=== PATIENT | female | born 1990 | race Two or more races ===

== ENCOUNTER 2016-08-11 07:14 | Inpatient (IN) | payer MEDICAID ==
[2016-08-11] MEDS: Misoprostol 50 MCG (1/2 of 100 MCG) Tab VAG PRN ×2 (07:50→15:15)
[2016-08-11] MEDS ORDERED: Calcium Carbonate 500 MG Tab.Chew PO PRN (08:00)
[2016-08-11] MEDS ORDERED: Acetaminophen 325 MG Tab PO PRN (08:00)
[2016-08-11] MEDS ORDERED: Sodium Chloride 0.9% 10 ML Syringe FLUSH PRN (08:00)
--- NOTE | 2016-08-11 08:17 | PCM.LDHP ---
L&D History of Present Illness - General Date of Service: 08/11/16 Admit Problem/Dx: Patient Status Order with Admit Dx/Problem 08/11/16 08:00 Patient Status [ADT] Routine Admission Diagnosis/Problem Admission Diagnosis/Problem Source of Information: Patient History Limitations: Reports: Language barrier - History of Present Illness Improves with: Reports: None Worsens with: Reports: None Associated Symptoms: Reports: N H&P Review of Systems - Review of Systems: Review Of Systems: See Below General: Reports: no symptoms HEENT: Reports: no symptoms Pulmonary: Reports: No Symptoms Cardiovascular: Reports: no symptoms Gastrointestinal: Reports: No symptoms Genitourinary: Reports: no symptoms Musculoskeletal: Reports: no symptoms Skin: Reports: no symptoms Psychiatric: Reports: no symptoms Neurological: Reports: No Symptoms Hematologic/Lymphatic: Reports: no symptoms Immunologic: Reports: no symptoms L&D Exam - Exam Exam: See Below - Vital Signs Vital Signs: Last Vital Signs Temp 36.5 C 08/11/16 07:39 Pulse 100 08/11/16 07:39 Resp 16 08/11/16 07:39 BP 98/72 08/11/16 07:39 Pulse Ox 96 08/11/16 07:39 - OB Specific movement: active heart tones: present Presentation: Vertex Estimated Weight: 7lbs - Don Score Don Score Cervix Position: Posterior Don Score Consistency: Soft Don Score Effacement: 31-50% Don Score Dilation: Closed Don Score 's Station: -3 Don Score Total: 3 - Exam General: alert, oriented HEENT: PERRLA, Conjunctiva clear, EACs clear, EOMI, Hearing intact, Mucosa moist & pink, Nares patent, Normal nasal septum, Posterior pharynx clear, Pupils equal, Pupils reactive, TMs clear Neck: supple, trachea midline Lungs: Clear to auscultation, Normal respiratory effort Cardiovascular: regular rate, regular rhythm Abdomen: normal bowel sounds, soft Genitourinary: Normal external exam Back Exam: normal inspection, full range of motion Extremities: normal inspection Skin: warm, dry, intact Neurological: cranial nerves intact, reflexes equal bilateral DTR: 2+: patella (L), patella (R) Psychiatric: alert, normal affect, normal mood - Patient Data Lab Results last 24 hrs: Laboratory Results - last 24 hr 08/11/16 08/11/16 08/11/16 Range/Units 07:33 07:34 07:34 WBC 7.5 (4.5-11.0) K/uL RBC 4.25 (3.30-5.50) M/uL Hgb 12.0 (12.0-15.0) g/dL Hct 36.7 (36.0-48.0) % MCV 86 (80-98) fL MCH 28 (27-31) pg MCHC 33 (32-36) % Plt Count 219 (150-400) K/uL Urine Color Yellow Urine Appearance Cloudy Urine pH 7.0 (4.5-8.0) Ur Specific [place] 1.010 (1.008-1.030) Urine Protein Negative (NEGATIVE) mg/dL Urine Glucose (UA) Normal (NEGATIVE) mg/dL Urine Ketones Negative (NEGATIVE) mg/dL Urine Occult Blood Negative (NEGATIVE) Urine Nitrite Negative (NEGATIVE) Urine Bilirubin Negative (NEGATIVE) Urine Urobilinogen Normal (NORMAL) mg/dL Ur Leukocyte Esterase Large (NEGATIVE) Urine RBC 0-5 (0-5) Urine WBC 5-10 H (0-5) Ur Epithelial Cells Moderate Amorphous Sediment Few Urine Bacteria Few Urine Mucus Few Urine Opiates Screen Negative (NEGATIVE) Ur Oxycodone Screen Negative (NEGATIVE) Urine Methadone Screen Negative (NEGATIVE) Ur Propoxyphene Screen Negative (NEGATIVE) Ur Barbiturates Screen Negative (NEGATIVE) Ur Tricyclics Screen Negative (NEGATIVE) Ur Phencyclidine Scrn Negative (NEGATIVE) Ur Amphetamine Screen Negative (NEGATIVE) U Methamphetamines Scrn Negative (NEGATIVE) Urine MDMA Screen Negative (NEGATIVE) U Benzodiazepines Scrn Negative (NEGATIVE) U Cocaine Metab Screen Negative (NEGATIVE) U Marijuana (THC) Screen Negative (NEGATIVE) Result Diagrams: 08/11/16 07:33 - Problem List (1) Elective induction of labor planned SNOMED Code(s): 216621476 ICD Code: [id number] - Status: Acute Current Visit: Yes (2) SNOMED Code(s): 31912504 ICD Code: Z33.1 - STATE, INCIDENTAL Status: Acute Current Visit : Yes Qualifiers: Weeks of gestation: 40 weeks Qualified Code(s): Z3A.40 - 40 weeks gestation of (3) Post-dates SNOMED Code(s): 06450358 ICD Code: O48.0 - POST-TERM Status: Acute Current Visit: Yes Qualifiers: Post-term type: 40-42 weeks gestation Qualified Code(s): O48.0 - Post-term Problem List Initiated/Reviewed/Updated: Yes Orders Last 24hrs: Active Orders 24 hr Category Date Time Status Patient Status [ADT] Routine ADT 08/11/16 08:00 Ordered Ambulate [RC] PER UNIT ROUTINE Care 08/11/16 08:00 Ordered Communication Order [RC] ASDIRECTED Care 08/11/16 08:00 Ordered Heart Tones [RC] PER UNIT ROUTINE Care 08/11/16 08:00 Ordered May Shower [RC] ASDIRECTED Care 08/11/16 08:00 Ordered Notify Provider Vital Signs [RC] PRN Care 08/11/16 08:00 Ordered Notify Provider [RC] PRN Care 08/11/16 08:00 Ordered Up ad Laury [RC] ASDIRECTED Care 08/11/16 08:00 Ordered VTE/DVT Education [RC] Click to Edit Care 08/11/16 08:02 Ordered Vital Signs [RC] PER UNIT ROUTINE Care 08/11/16 08:00 Ordered Acetaminophen [Tylenol] Med 08/11/16 08:00 Ordered 650 mg PO Q4H PRN Calcium Carbonate [Tums] Med 08/11/16 08:00 Ordered 1,000 mg PO Q2HR PRN Misoprostol [Cytotec] Med 08/11/16 07:41 Active 50 mcg VAG Q4H PRN Ondansetron [Zofran] Med 08/11/16 08:00 Ordered 4 mg IV Q4H PRN Sodium Chloride 0.9% [Saline Flush] Med 08/11/16 08:00 Ordered 10 ml FLUSH ASDIRECTED PRN fentaNYL [Sublimaze] Med 08/11/16 08:00 Ordered 100 mcg IVPUSH Q1H PRN DVT/VTE Prophylaxis Reflex [OM.PC] Routine Oth 08/11/16 08:00 Ordered Saline Lock Insert [OM.PC] Routine Oth 08/11/16 08:00 Ordered Resuscitation Status Routine Resus Stat 08/11/16 08:00 Ordered Medication Orders Misoprostol (Cytotec) 50 mcg VAG Q4H PRN PRN Reason: Other Last Admin: 08/11/16 07:50 Dose: 50 mcg Assessment/Plan Comment:: 08/11/2016 26 yo @ 40 & 2/7 wks gestation here for and elective induction of labor for postdates SVE-FT/50/-3 [place]-3 Cytotec placed 50mcg vaginally @ 8498 Labs-Apos, GBS negative, Rubella Immune, RPR nonreactive, Hep B negative, HIV negative, Hgb 12.0 Plan- Monitor for active labor Up and about Patient may bath Patient may eat regular diet till epidural Intermittent monitoring Pain management per patient request Anticipate a vaginal delivery
[2016-08-11] MEDS ORDERED: Lactated Ringers 500 ML IV ONE (12:30)
--- NOTE | 2016-08-11 15:33 | PCM.PNLD ---
Labor Progress Note - VS & Meds Vital Signs: Last Vital Signs Temp 36.7 C 08/11/16 12:15 Pulse 56 L 08/11/16 12:15 Resp 16 08/11/16 12:15 BP 119/83 08/11/16 12:15 Pulse Ox 99 08/11/16 10:25 Active Medications: Current Medications Acetaminophen (Tylenol) 650 mg PO Q4H PRN PRN Reason: Pain (Mild 1-3) and fever Calcium Carbonate/Glycine (Tums) 1,000 mg PO Q2H PRN PRN Reason: Indigestion Fentanyl (Sublimaze) 100 mcg IVPUSH Q1H PRN PRN Reason: Pain (moderate 4-6) Misoprostol (Cytotec) 50 mcg VAG Q4H PRN PRN Reason: Other Last Admin: 08/11/16 15:15 Dose: 50 mcg Ondansetron HCl (Zofran) 4 mg IV Q4H PRN PRN Reason: Nausea/Vomiting Sodium Chloride (Saline Flush) 10 ml FLUSH ASDIRECTED PRN PRN Reason: Keep Vein Open Discontinued Medications Lactated Ringer's (Ringers, Lactated) 500 mls @ 999 mls/hr IV .BOLUS ONE Stop: 08/11/16 13:00 Last Admin: 08/11/16 12:34 Dose: 999 mls/hr - Uterine Contractions Uterine Monitoring Mode: External [place] Contraction Frequency (min): 1.5-6 Contraction Duration (sec): 60-80 Contraction Intensity: Mild to Moderate Uterine Resting Tone: Soft - Vaginal Exam Dilation (cm): FT Effacement (Percent): 80-90 Station: -2 Cervical Position: Posterior Sterile Vaginal Exam Performed By: Anne Chan Vaginal Exam Comment: IV fluid bolus. Reasses prior to Cytotec placement - Labor Progress (Free Text) Labor Progress: 08/11/2016 CNM came at noon and patient was willie to frequently to place another cytotec, but had had little to no cervical change 1515-SVE FT/80-90/-2 posterior Cytotec 50mcg placed at this time Patient tolerating pain with position change Plan- Continue to monitor for active labor Continue intermittent monitoring Patient can eat regular diet Anticipate a vaginal delivery If no change at next check, will sleep patient and restart early in am
[2016-08-11] MEDS: Ondansetron 4 MG/2 ML SDV IV PRN (16:48)
[2016-08-11] MEDS: fentaNYL 100 MCG/2 ML SDV IVPUSH PRN ×2 (16:58→18:13)
[2016-08-11] MEDS ORDERED: Lactated Ringers 500 ML IV SCH (17:15)
[2016-08-11] MEDS: Lactated Ringers 1,000 ML IV ONE ×2 (18:20→21:19)
--- NOTE | 2016-08-11 18:21 | PCM.PNLD ---
Labor Progress Note - VS & Meds Vital Signs: Last Vital Signs Temp 37.2 C 08/11/16 17:34 Pulse 65 08/11/16 17:25 Resp 16 08/11/16 17:25 BP 117/74 08/11/16 17:25 Pulse Ox 99 08/11/16 15:30 Active Medications: Current Medications Acetaminophen (Tylenol) 650 mg PO Q4H PRN PRN Reason: Pain (Mild 1-3) and fever Last Admin: 08/11/16 17:04 Dose: 650 mg Calcium Carbonate/Glycine (Tums) 1,000 mg PO Q2H PRN PRN Reason: Indigestion Fentanyl (Sublimaze) 100 mcg IVPUSH Q1H PRN PRN Reason: Pain (moderate 4-6) Last Admin: 08/11/16 16:58 Dose: 100 mcg Misoprostol (Cytotec) 50 mcg VAG Q4H PRN PRN Reason: Other Last Admin: 08/11/16 15:15 Dose: 50 mcg Ondansetron HCl (Zofran) 4 mg IV Q4H PRN PRN Reason: Nausea/Vomiting Last Admin: 08/11/16 16:48 Dose: 4 mg Sodium Chloride (Saline Flush) 10 ml FLUSH ASDIRECTED PRN PRN Reason: Keep Vein Open Discontinued Medications Lactated Ringer's (Ringers, Lactated) 500 mls @ 999 mls/hr IV .BOLUS ONE Stop: 08/11/16 13:00 Last Admin: 08/11/16 12:34 Dose: 999 mls/hr Lactated Ringer's (Ringers, Lactated) 500 mls @ 999 mls/hr IV .BOLUS BEENA Stop: 08/11/16 17:30 - Uterine Contractions Uterine Monitoring Mode: External [place] Contraction Frequency (min): 1-2.5 Contraction Duration (sec): 60-90 Contraction Intensity: Moderate to Strong Uterine Resting Tone: Soft - Vaginal Exam Dilation (cm): 1 Effacement (Percent): 80 Station: -2 Cervical Position: Posterior Sterile Vaginal Exam Performed By: Anne Chan Vaginal Exam Comment: IV fluid bolus. Reasses prior to Cytotec placement - Labor Progress (Free Text) Labor Progress: 08/11/2016 Patient not getting any relief from IV pain medication SVE-1-2/80/-2 but more midposition Contraction tachystole-FHT stable category one Patient crying in pain-rating it a ten on pain scale Plan- IV bolus patient-to slow contractions Get patient an epidural-for pain management Once comfortable place cormier catheter Anticipate vaginal delivery
[2016-08-11] MEDS ORDERED: ePHEDrine 50 MG/ML SDV ONE (19:22)
[2016-08-11] MEDS ORDERED: Ropivacaine 100 ML ONE (19:33)
--- NOTE | 2016-08-11 19:40 | PCM.PNLD ---
Labor Progress Note - VS & Meds Vital Signs: Last Vital Signs Temp 37.2 C 08/11/16 17:34 Pulse 65 08/11/16 17:25 Resp 16 08/11/16 17:25 BP 117/74 08/11/16 17:25 Pulse Ox 99 08/11/16 15:30 Active Medications: Current Medications Acetaminophen (Tylenol) 650 mg PO Q4H PRN PRN Reason: Pain (Mild 1-3) and fever Last Admin: 08/11/16 17:04 Dose: 650 mg Calcium Carbonate/Glycine (Tums) 1,000 mg PO Q2H PRN PRN Reason: Indigestion Fentanyl (Sublimaze) 100 mcg IVPUSH Q1H PRN PRN Reason: Pain (moderate 4-6) Last Admin: 08/11/16 18:13 Dose: 100 mcg Misoprostol (Cytotec) 50 mcg VAG Q4H PRN PRN Reason: Other Last Admin: 08/11/16 15:15 Dose: 50 mcg Ondansetron HCl (Zofran) 4 mg IV Q4H PRN PRN Reason: Nausea/Vomiting Last Admin: 08/11/16 16:48 Dose: 4 mg Sodium Chloride (Saline Flush) 10 ml FLUSH ASDIRECTED PRN PRN Reason: Keep Vein Open Discontinued Medications Ephedrine Sulfate (Ephedrine Sulfate) Confirm Administered Dose 50 mg .ROUTE .STK-MED ONE Stop: 08/11/16 19:23 Lactated Ringer's (Ringers, Lactated) 500 mls @ 999 mls/hr IV .BOLUS ONE Stop: 08/11/16 13:00 Last Admin: 08/11/16 12:34 Dose: 999 mls/hr Lactated Ringer's (Ringers, Lactated) 500 mls @ 999 mls/hr IV .BOLUS BEENA Stop: 08/11/16 17:30 Lactated Ringer's (Ringers, Lactated) 1,000 mls @ 999 mls/hr IV .BOLUS ONE Stop: 08/11/16 19:15 Last Admin: 08/11/16 18:20 Dose: 999 mls/hr Ropivacaine (Naropin 0.2%) Confirm Administered Dose 100 mls @ as directed .ROUTE .STK-MED ONE Stop: 08/11/16 19:34 - Uterine Contractions Uterine Monitoring Mode: External [place] Contraction Frequency (min): 1-1.5 Contraction Duration (sec): 80 Contraction Intensity: Moderate to Strong Uterine Resting Tone: Soft - Vaginal Exam Dilation (cm): 3 Effacement (Percent): 80-90 Station: -1 Cervical Position: Anterior Sterile Vaginal Exam Performed By: Anne Chan Vaginal Exam Comment: IV fluid bolus. Reasses prior to Cytotec placement - Labor Progress (Free Text) Labor Progress: 08/11/2016 Patient now comfortable with epidural [id number]-380-1 anterior Contractions still every 1-2.5minutes Category 1 FHTs Plan- Continue to monitor contractions Continue to monitor FHTs Continue IV fluids Anticipate vaginal delivery If no cervical change will initiate Pitocin per protocol at 0500 on 08/12/2016 and may AROM at this time
[2016-08-11] MEDS ORDERED: Terbutaline 1 MG/ML SDV SUBCUT STA (21:40)
[2016-08-11] MEDS ORDERED: Penicillin G Potassium 5 MILLUNITS in Sodium Chloride 0.9% 100 ML IV ONE (23:16)
--- NOTE | 2016-08-11 23:21 | PCM.PNLD ---
Labor Progress Note - VS & Meds Vital Signs: Last Vital Signs Temp 37.8 C 08/11/16 23:16 Pulse 67 08/11/16 21:45 Resp 18 08/11/16 21:45 BP 92/52 L 08/11/16 21:15 Pulse Ox 97 08/11/16 21:45 Active Medications: Current Medications Acetaminophen (Tylenol) 650 mg PO Q4H PRN PRN Reason: Pain (Mild 1-3) and fever Last Admin: 08/11/16 17:04 Dose: 650 mg Calcium Carbonate/Glycine (Tums) 1,000 mg PO Q2H PRN PRN Reason: Indigestion Fentanyl (Sublimaze) 100 mcg IVPUSH Q1H PRN PRN Reason: Pain (moderate 4-6) Last Admin: 08/11/16 18:13 Dose: 100 mcg Penicillin G Potassium 5 (millunits/ Sodium Chloride) 100 mls @ 100 mls/hr IV ONETIME ONE Stop: 08/12/16 00:15 Penicillin G Potassium 2.5 (millunits/ Sodium Chloride) 100 mls @ 100 mls/hr IV Q4H BEENA Misoprostol (Cytotec) 50 mcg VAG Q4H PRN PRN Reason: Other Last Admin: 08/11/16 15:15 Dose: 50 mcg Ondansetron HCl (Zofran) 4 mg IV Q4H PRN PRN Reason: Nausea/Vomiting Last Admin: 08/11/16 16:48 Dose: 4 mg Sodium Chloride (Saline Flush) 10 ml FLUSH ASDIRECTED PRN PRN Reason: Keep Vein Open Discontinued Medications Ephedrine Sulfate (Ephedrine Sulfate) Confirm Administered Dose 50 mg .ROUTE .STK-MED ONE Stop: 08/11/16 19:23 Last Admin: 08/11/16 21:15 Dose: 10 mg Lactated Ringer's (Ringers, Lactated) 500 mls @ 999 mls/hr IV .BOLUS ONE Stop: 08/11/16 13:00 Last Admin: 08/11/16 12:34 Dose: 999 mls/hr Lactated Ringer's (Ringers, Lactated) 500 mls @ 999 mls/hr IV .BOLUS BEENA Stop: 08/11/16 17:30 Lactated Ringer's (Ringers, Lactated) 1,000 mls @ 999 mls/hr IV .BOLUS ONE Stop: 08/11/16 19:15 Last Admin: 08/11/16 21:19 Dose: 999 mls/hr Ropivacaine (Naropin 0.2%) Confirm Administered Dose 100 mls @ as directed .ROUTE .STK-MED ONE Stop: 08/11/16 19:34 Terbutaline Sulfate (Brethine) 0.25 mg SUBCUT ONETIME STA Stop: 08/11/16 21:41 Last Admin: 08/11/16 22:02 Dose: 0.25 mg - Uterine Contractions Uterine Monitoring Mode: External [place] Contraction Frequency (min): 2-3 Contraction Duration (sec): 60 Contraction Intensity: Moderate Uterine Resting Tone: Soft - Vaginal Exam Dilation (cm): 3-4 Effacement (Percent): 90 Station: 1 Cervical Position: Anterior Sterile Vaginal Exam Performed By: Melyssa Macedo Vaginal Exam Comment: IV fluid bolus. Reasses prior to Cytotec placement - Labor Progress (Free Text) Labor Progress: 08/11/2016 Patient tolerating pain with epidural SVE-3-4/90/-1, intact FHTs category one but with a baseline change from 130s-150s Contractions still tachysystole so a dose of terbutaline was given and contractions are more stable now IV bolus and position change was also done Patient now febrile Plan- Initiate IV antibiotics-for fever Continue IV fluids Continue to monitor FHTS and contraction pattern Anticipate a vaginal delivery
[2016-08-11] MEDS ORDERED: Sodium Chloride 0.9% 100 ML ONE (23:32)
[2016-08-12] MEDS: Lactated Ringers 1,000 ML IV ONE (01:33)
[2016-08-12] MEDS ORDERED: fentaNYL 100 MCG/2 ML SDV ONE ×3 (01:45→08:27)
[2016-08-12] MEDS ORDERED: Ropivacaine 100 ML ONE (01:50)
[2016-08-12] MEDS ORDERED: Naloxone 0.4 MG/ML SDV ONE (02:29)
[2016-08-12] MEDS ORDERED: Lidocaine 1% 50 ML MDV ONE (02:29)
[2016-08-12] MEDS ORDERED: Oxytocin 10 Units/1 ML SDV ONE ×3 (02:29→06:48)
--- NOTE | 2016-08-12 02:45 | ANES ---
DATE OF SERVICE: 08/11/2016 Arianne is a 26-year-old female patient of Anne Chan. Please refer to Anne's note for diagnosis, ELKIN #[id number]. I was requested to visit with Arianne and discuss with her labor epidural. Upon arrival, review of her history as well as lab work found no contraindications to epidural placement. She does not speak Spanish. Through an oil treater, I discussed with her risks and benefits of the procedure. She was aware at that point and okay to proceed and consent was received. I had her seated at the edge of the bed. Betadine prep x3 to lumbar region. Sterile drape was placed, 1% lidocaine skin wheal as well as deep at the L3-L4 region, 17-gauge Tuohy was placed to loss of resistance with ease. Negative CSF, negative heme, negative paresthesia. I inserted a catheter to 12 cm, removed the needle, placed a test dose of 3 mL of 1.5% lidocaine and 1:200,000 epinephrine. Negative sequelae. The catheter was secured, placed her in a supine position and dosed her with 10 mL of 0.2% ropivacaine and then began an infusion of that same 0.2% ropivacaine. She tolerated the procedure quite well and was already starting to get relief shortly after placement of catheter, reported off to the nurse as well as the Anne Chan on the procedure. Please refer to nurses' note for vital signs and neuro status, which were unchanged. Bandar Barragan CRNA /[id number]
[2016-08-12] MEDS ORDERED: Penicillin G Potassium 2.5 MILLUNITS in Sodium Chloride 0.9% 100 ML IV SCH (03:30)
[2016-08-12] MEDS ORDERED: Sodium Chloride 0.9% 100 ML ONE (03:32)
--- NOTE | 2016-08-12 05:37 | PCM.PNLD ---
Labor Progress Note - VS & Meds Vital Signs: Last Vital Signs Temp 37.2 C 08/12/16 04:43 Pulse 70 08/12/16 02:24 Resp 18 08/12/16 02:24 BP 102/62 08/12/16 02:24 Pulse Ox 95 08/12/16 02:24 Active Medications: Current Medications Acetaminophen (Tylenol) 650 mg PO Q4H PRN PRN Reason: Pain (Mild 1-3) and fever Last Admin: 08/11/16 17:04 Dose: 650 mg Calcium Carbonate/Glycine (Tums) 1,000 mg PO Q2H PRN PRN Reason: Indigestion Fentanyl (Sublimaze) 100 mcg IVPUSH Q1H PRN PRN Reason: Pain (moderate 4-6) Last Admin: 08/11/16 18:13 Dose: 100 mcg Penicillin G Potassium 2.5 (millunits/ Sodium Chloride) 100 mls @ 100 mls/hr IV Q4H BEENA Last Admin: 08/12/16 03:46 Dose: 100 mls/hr Misoprostol (Cytotec) 50 mcg VAG Q4H PRN PRN Reason: Other Last Admin: 08/11/16 15:15 Dose: 50 mcg Ondansetron HCl (Zofran) 4 mg IV Q4H PRN PRN Reason: Nausea/Vomiting Last Admin: 08/11/16 16:48 Dose: 4 mg Sodium Chloride (Saline Flush) 10 ml FLUSH ASDIRECTED PRN PRN Reason: Keep Vein Open Discontinued Medications Ephedrine Sulfate (Ephedrine Sulfate) Confirm Administered Dose 50 mg .ROUTE .STK-MED ONE Stop: 08/11/16 19:23 Last Admin: 08/11/16 21:15 Dose: 10 mg Fentanyl (Sublimaze) Confirm Administered Dose 100 mcg .ROUTE .STK-MED ONE Stop: 08/12/16 01:46 Lactated Ringer's (Ringers, Lactated) 500 mls @ 999 mls/hr IV .BOLUS ONE Stop: 08/11/16 13:00 Last Admin: 08/11/16 12:34 Dose: 999 mls/hr Lactated Ringer's (Ringers, Lactated) 500 mls @ 999 mls/hr IV .BOLUS BEENA Stop: 08/11/16 17:30 Lactated Ringer's (Ringers, Lactated) 1,000 mls @ 999 mls/hr IV .BOLUS ONE Stop: 08/11/16 19:15 Last Admin: 08/12/16 01:33 Dose: 999 mls/hr Ropivacaine (Naropin 0.2%) Confirm Administered Dose 100 mls @ as directed .ROUTE .STK-MED ONE Stop: 08/11/16 19:34 Penicillin G Potassium 5 (millunits/ Sodium Chloride) 100 mls @ 100 mls/hr IV ONETIME ONE Stop: 08/12/16 00:15 Last Admin: 08/11/16 23:40 Dose: 100 mls/hr Sodium Chloride (Normal Saline) Confirm Administered Dose 100 mls @ as directed .ROUTE .STK-MED ONE Stop: 08/11/16 23:33 Last Admin: 08/11/16 23:40 Dose: 100 ml Ropivacaine (Naropin 0.2%) Confirm Administered Dose 100 mls @ as directed .ROUTE .STK-MED ONE Stop: 08/12/16 01:51 Last Admin: 08/12/16 01:58 Dose: 2 mg Sodium Chloride (Normal Saline) Confirm Administered Dose 100 mls @ as directed .ROUTE .STK-MED ONE Stop: 08/12/16 03:33 Last Admin: 08/12/16 03:46 Dose: 100 ml Lidocaine HCl (Xylocaine 1%) Confirm Administered Dose 100 ml .ROUTE .STK-MED ONE Stop: 08/12/16 02:30 Naloxone HCl (Narcan) Confirm Administered Dose 0.4 mg .ROUTE .STK-MED ONE Stop: 08/12/16 02:30 Oxytocin (Pitocin) Confirm Administered Dose 10 unit .ROUTE .STK-MED ONE Stop: 08/12/16 02:30 Terbutaline Sulfate (Brethine) 0.25 mg SUBCUT ONETIME STA Stop: 08/11/16 21:41 Last Admin: 08/11/16 22:02 Dose: 0.25 mg - Uterine Contractions Uterine Monitoring Mode: External [place] Contraction Frequency (min): 2-4.5 Contraction Duration (sec): 50-80 Contraction Intensity: Moderate Uterine Resting Tone: Soft - Vaginal Exam Dilation (cm): 8 Effacement (Percent): 100 Station: -1 Cervical Position: Anterior Sterile Vaginal Exam Performed By: Anne Chan Vaginal Exam Comment: IV fluid bolus. Reasses prior to Cytotec placement - Labor Progress (Free Text) Labor Progress: 08/12/2016 Patient has been laboring all night Pain controlled with epidural-did have to have anesthesia come back to bolus during night SVE-8/100/-2,-1, AROM clear fluid Contractions stable FHTs occasional category II with decelerations, variables, and minimal variability Many interventions done from position change, oxygen application, IV fluid boluses Patient educated with phone train operations supervisor on FHTs, contraction pattern, and plan of care-questions answered per train operations supervisor Plan- Continue to monitor FHTs Continue to monitor contraction pattern Continue interventions if less than a category one strip Will reassess SVE and monitor strip at 0600
--- NOTE | 2016-08-12 06:34 | PCM.PNLD ---
Labor Progress Note - VS & Meds Vital Signs: Last Vital Signs Temp 37.2 C 08/12/16 04:43 Pulse 70 08/12/16 02:24 Resp 18 08/12/16 02:24 BP 102/62 08/12/16 02:24 Pulse Ox 95 08/12/16 02:24 Active Medications: Current Medications Acetaminophen (Tylenol) 650 mg PO Q4H PRN PRN Reason: Pain (Mild 1-3) and fever Last Admin: 08/11/16 17:04 Dose: 650 mg Calcium Carbonate/Glycine (Tums) 1,000 mg PO Q2H PRN PRN Reason: Indigestion Fentanyl (Sublimaze) 100 mcg IVPUSH Q1H PRN PRN Reason: Pain (moderate 4-6) Last Admin: 08/11/16 18:13 Dose: 100 mcg Penicillin G Potassium 2.5 (millunits/ Sodium Chloride) 100 mls @ 100 mls/hr IV Q4H BEENA Last Admin: 08/12/16 03:46 Dose: 100 mls/hr Misoprostol (Cytotec) 50 mcg VAG Q4H PRN PRN Reason: Other Last Admin: 08/11/16 15:15 Dose: 50 mcg Ondansetron HCl (Zofran) 4 mg IV Q4H PRN PRN Reason: Nausea/Vomiting Last Admin: 08/11/16 16:48 Dose: 4 mg Sodium Chloride (Saline Flush) 10 ml FLUSH ASDIRECTED PRN PRN Reason: Keep Vein Open Discontinued Medications Ephedrine Sulfate (Ephedrine Sulfate) Confirm Administered Dose 50 mg .ROUTE .STK-MED ONE Stop: 08/11/16 19:23 Last Admin: 08/11/16 21:15 Dose: 10 mg Fentanyl (Sublimaze) Confirm Administered Dose 100 mcg .ROUTE .STK-MED ONE Stop: 08/12/16 01:46 Lactated Ringer's (Ringers, Lactated) 500 mls @ 999 mls/hr IV .BOLUS ONE Stop: 08/11/16 13:00 Last Admin: 08/11/16 12:34 Dose: 999 mls/hr Lactated Ringer's (Ringers, Lactated) 500 mls @ 999 mls/hr IV .BOLUS BEENA Stop: 08/11/16 17:30 Lactated Ringer's (Ringers, Lactated) 1,000 mls @ 999 mls/hr IV .BOLUS ONE Stop: 08/11/16 19:15 Last Admin: 08/12/16 01:33 Dose: 999 mls/hr Ropivacaine (Naropin 0.2%) Confirm Administered Dose 100 mls @ as directed .ROUTE .STK-MED ONE Stop: 08/11/16 19:34 Penicillin G Potassium 5 (millunits/ Sodium Chloride) 100 mls @ 100 mls/hr IV ONETIME ONE Stop: 08/12/16 00:15 Last Admin: 08/11/16 23:40 Dose: 100 mls/hr Sodium Chloride (Normal Saline) Confirm Administered Dose 100 mls @ as directed .ROUTE .STK-MED ONE Stop: 08/11/16 23:33 Last Admin: 08/11/16 23:40 Dose: 100 ml Ropivacaine (Naropin 0.2%) Confirm Administered Dose 100 mls @ as directed .ROUTE .STK-MED ONE Stop: 08/12/16 01:51 Last Admin: 08/12/16 01:58 Dose: 2 mg Sodium Chloride (Normal Saline) Confirm Administered Dose 100 mls @ as directed .ROUTE .STK-MED ONE Stop: 08/12/16 03:33 Last Admin: 08/12/16 03:46 Dose: 100 ml Lidocaine HCl (Xylocaine 1%) Confirm Administered Dose 100 ml .ROUTE .STK-MED ONE Stop: 08/12/16 02:30 Naloxone HCl (Narcan) Confirm Administered Dose 0.4 mg .ROUTE .STK-MED ONE Stop: 08/12/16 02:30 Oxytocin (Pitocin) Confirm Administered Dose 10 unit .ROUTE .STK-MED ONE Stop: 08/12/16 02:30 Terbutaline Sulfate (Brethine) 0.25 mg SUBCUT ONETIME STA Stop: 08/11/16 21:41 Last Admin: 08/11/16 22:02 Dose: 0.25 mg - Uterine Contractions Uterine Monitoring Mode: External [place] Contraction Frequency (min): 2-5 Contraction Duration (sec): 60-120 Contraction Intensity: Strong Uterine Resting Tone: Soft - Vaginal Exam Dilation (cm): 8 Effacement (Percent): 100 Station: -1 Cervical Position: Anterior Sterile Vaginal Exam Performed By: Anne Chan Vaginal Exam Comment: IV fluid bolus. Reasses prior to Cytotec placement - Labor Progress (Free Text) Labor Progress: 08/12/2016 FHTs again with occasional category II SVE unchanged-labia and cervix now slightly swollen Contractions now spaced to 2-5mins apart Patient pain well controlled with epidural Rug Cutter phone used to educate patient with plan of care Decision to proceed to section made-patient educated on process, possible complications, and priority of why baby needs to be delivered this way. Questions answered with science interpreter for patient Patient and significant other verbalized understanding Dr. Scott phoned and notified of plan of care-team called in
[2016-08-12] MEDS ORDERED: Lidocaine 2% 5 ML SDV ONE ×2 (06:45→07:15)
[2016-08-12] MEDS ORDERED: Propofol 200 MG/20 ML SDV ONE (07:21)
[2016-08-12] MEDS ORDERED: Succinylcholine/Normal Saline 200 MG/10 ML Syringe ONE (07:21)
[2016-08-12] MEDS ORDERED: Lactated Ringers 0 ML ONE (07:28)
[2016-08-12] MEDS ORDERED: Penicillin G Potassium 2.5 MILLUNITS in Sodium Chloride 0.9% 50 ML IV SCH (07:30)
[2016-08-12] MEDS ORDERED: Simethicone 80 MG Tab.Chew PO PRN (08:09)
[2016-08-12] MEDS ORDERED: diphenhydrAMINE 50 MG/ML SDV IVPUSH PRN (08:09)
[2016-08-12] MEDS ORDERED: diphenhydrAMINE 50 MG/ML SDV IV PRN (08:09)
[2016-08-12] MEDS ORDERED: ePHEDrine 50 MG/ML SDV IVPUSH PRN (08:09)
[2016-08-12] MEDS ORDERED: Docusate Sodium 100 MG Cap PO PRN (08:09)
[2016-08-12] MEDS ORDERED: Naloxone 0.4 MG/ML SDV IVPUSH PRN ×2 (08:09→09:22)
[2016-08-12] MEDS ORDERED: Bisacodyl 10 MG Supp RECTAL PRN (08:09)
[2016-08-12] MEDS ORDERED: Morphine PF 10 MG/10 ML SDV ONE (08:16)
--- NOTE | 2016-08-12 08:20 | PCM.PNLD ---
Labor Progress Note - VS & Meds Vital Signs: Last Vital Signs Temp 37.2 C 08/12/16 04:43 Pulse 70 08/12/16 02:24 Resp 18 08/12/16 02:24 BP 102/62 08/12/16 02:24 Pulse Ox 95 08/12/16 02:24 Active Medications: Current Medications Acetaminophen (Tylenol) 650 mg PO Q4H PRN PRN Reason: Pain (Mild 1-3) and fever Last Admin: 08/11/16 17:04 Dose: 650 mg Bisacodyl (Dulcolax) 10 mg RECTAL BID PRN PRN Reason: Constipation Calcium Carbonate/Glycine (Tums) 1,000 mg PO Q2H PRN PRN Reason: Indigestion Diphenhydramine HCl (Benadryl) 25 mg IVPUSH Q6H PRN PRN Reason: Itching or Nausea Diphenhydramine HCl (Benadryl) 25 mg IV Q4H PRN PRN Reason: Itching Docusate Sodium (Colace) 100 mg PO Q12H PRN PRN Reason: Constipation Ephedrine Sulfate (Ephedrine Sulfate) 5 mg IVPUSH ASDIRECTED PRN PRN Reason: Other Fentanyl (Sublimaze) 100 mcg IVPUSH Q1H PRN PRN Reason: Pain (moderate 4-6) Last Admin: 08/11/16 18:13 Dose: 100 mcg Penicillin G Potassium 2.5 (millunits/ Sodium Chloride) 50 mls @ 100 mls/hr IV Q4H BEENA Sodium Chloride (Normal Saline) 1,000 mls @ 125 mls/hr IV ASDIRECTED [facility] Ibuprofen (Motrin) 800 mg PO Q8H PRN PRN Reason: mild pain or fever Naloxone HCl (Narcan) 0.1 mg IVPUSH ASDIRECTED PRN PRN Reason: Respiratory Depression Stop: 08/12/16 16:00 Ondansetron HCl (Zofran) 4 mg IV Q4H PRN PRN Reason: Nausea/Vomiting Last Admin: 08/11/16 16:48 Dose: 4 mg Simethicone (Simethicone) 80 mg PO Q4H PRN PRN Reason: Gas Sodium Chloride (Saline Flush) 10 ml FLUSH ASDIRECTED PRN PRN Reason: Keep Vein Open Discontinued Medications Ephedrine Sulfate (Ephedrine Sulfate) Confirm Administered Dose 50 mg .ROUTE .STK-MED ONE Stop: 08/11/16 19:23 Last Admin: 08/11/16 21:15 Dose: 10 mg Fentanyl (Sublimaze) Confirm Administered Dose 100 mcg .ROUTE .STK-MED ONE Stop: 08/12/16 01:46 Fentanyl (Sublimaze) Confirm Administered Dose 100 mcg .ROUTE .STK-MED ONE Stop: 08/12/16 06:46 Lactated Ringer's (Ringers, Lactated) 500 mls @ 999 mls/hr IV .BOLUS ONE Stop: 08/11/16 13:00 Last Admin: 08/11/16 12:34 Dose: 999 mls/hr Lactated Ringer's (Ringers, Lactated) 500 mls @ 999 mls/hr IV .BOLUS BEENA Stop: 08/11/16 17:30 Lactated Ringer's (Ringers, Lactated) 1,000 mls @ 999 mls/hr IV .BOLUS ONE Stop: 08/11/16 19:15 Last Admin: 08/12/16 01:33 Dose: 999 mls/hr Ropivacaine (Naropin 0.2%) Confirm Administered Dose 100 mls @ as directed .ROUTE .STK-MED ONE Stop: 08/11/16 19:34 Penicillin G Potassium 5 (millunits/ Sodium Chloride) 100 mls @ 100 mls/hr IV ONETIME ONE Stop: 08/12/16 00:15 Last Admin: 08/11/16 23:40 Dose: 100 mls/hr Penicillin G Potassium 2.5 (millunits/ Sodium Chloride) 100 mls @ 100 mls/hr IV Q4H BEENA Last Admin: 08/12/16 03:46 Dose: 100 mls/hr Sodium Chloride (Normal Saline) Confirm Administered Dose 100 mls @ as directed .ROUTE .STK-MED ONE Stop: 08/11/16 23:33 Last Admin: 08/11/16 23:40 Dose: 100 ml Ropivacaine (Naropin 0.2%) Confirm Administered Dose 100 mls @ as directed .ROUTE .STK-MED ONE Stop: 08/12/16 01:51 Last Admin: 08/12/16 01:58 Dose: 2 mg Sodium Chloride (Normal Saline) Confirm Administered Dose 100 mls @ as directed .ROUTE .STK-MED ONE Stop: 08/12/16 03:33 Last Admin: 08/12/16 03:46 Dose: 100 ml Lactated Ringer's (Ringers, Lactated) Confirm Administered Dose 1,000 mls @ as directed .ROUTE .STK-MED ONE Stop: 08/12/16 07:29 Lidocaine (Xylocaine-Mpf 2%) Confirm Administered Dose 15 ml .ROUTE .STK-MED ONE Stop: 08/12/16 06:46 Lidocaine (Xylocaine-Mpf 2%) Confirm Administered Dose 5 ml .ROUTE .STK-MED ONE Stop: 08/12/16 07:16 Lidocaine HCl (Xylocaine 1%) Confirm Administered Dose 100 ml .ROUTE .STK-MED ONE Stop: 08/12/16 02:30 Last Admin: 08/12/16 06:41 Dose: Not Given Misoprostol (Cytotec) 50 mcg VAG Q4H PRN PRN Reason: Other Last Admin: 08/11/16 15:15 Dose: 50 mcg Morphine Sulfate (Duramorph Pf) Confirm Administered Dose 10 mg .ROUTE .STK-MED ONE Stop: 08/12/16 08:17 Naloxone HCl (Narcan) Confirm Administered Dose 0.4 mg .ROUTE .STK-MED ONE Stop: 08/12/16 02:30 Last Admin: 08/12/16 06:41 Dose: Not Given Oxytocin (Pitocin) Confirm Administered Dose 10 unit .ROUTE .STK-MED ONE Stop: 08/12/16 02:30 Last Admin: 08/12/16 06:41 Dose: Not Given Oxytocin (Pitocin) Confirm Administered Dose 10 unit .ROUTE .STK-MED ONE Stop: 08/12/16 06:37 Oxytocin (Pitocin) Confirm Administered Dose 10 unit .ROUTE .STK-MED ONE Stop: 08/12/16 06:49 Propofol (Diprivan 20 Ml) Confirm Administered Dose 200 mg .ROUTE .STK-MED ONE Stop: 08/12/16 07:22 Succinylcholine Chloride (Succinylcholine In Ns Pf) Confirm Administered Dose 200 mg .ROUTE .STK-MED ONE Stop: 08/12/16 07:22 Terbutaline Sulfate (Brethine) 0.25 mg SUBCUT ONETIME STA Stop: 08/11/16 21:41 Last Admin: 04/13/17 22:02 Dose: 0.25 mg - Uterine Contractions Uterine Monitoring Mode: External [place] Contraction Frequency (min): 2-5 Contraction Duration (sec): 60-120 Contraction Intensity: Strong Uterine Resting Tone: Soft - Vaginal Exam Dilation (cm): 8 Effacement (Percent): 100 Station: -1 Cervical Position: Anterior Sterile Vaginal Exam Performed By: Anne Chan Vaginal Exam Comment: IV fluid bolus. Reasses prior to Cytotec placement - Labor Progress (Free Text) Labor Progress: 08/12/2016 @ 0700 Patient brought down to OR by surgical staff FHTs stable category one before going to OR Care handed over to the Surgeon
[2016-08-12] MEDS ORDERED: Ropivacaine 100 ML EPIDUR SCH (09:22)
[2016-08-12] MEDS: Sodium Chloride 0.9% 1,000 ML IV SCH ×2 (09:24→17:31)
[2016-08-12] MEDS ORDERED: Acetaminophen 1,000 MG in Premix Bag 1 BAG IV ONE (09:30)
[2016-08-12] MEDS ORDERED: Morphine 2 MG/ML Syringe IVPUSH PRN (09:47)
[2016-08-12] MEDS ORDERED: Rocuronium 50 MG/5 ML Vial ONE (10:30)
[2016-08-12] MEDS: Ondansetron 4 MG/2 ML SDV IV PRN (13:07)
--- NOTE | 2016-08-12 14:17 | OR ---
DATE OF PROCEDURE: 08/12/2016 PROCEDURE: Caesarean section with aftercare. UNEMPLOYMENT SPECIALIST: Anne Chan. COMPLICATIONS: None. UNEMPLOYMENT SPECIALIST: None. ANESTHETIC: Epidural converted to general anesthetic. RISKS: Risks, benefits, alternatives, and limitations, including, but not limited to infection, bleeding, and injury to bowel, bladder, baby, chronic scarring, and other risks not listed here. PROCEDURE IN DETAIL: The patient was placed in supine position. The abdomen was prepped and draped. The patient was checked multiple times for anesthetic level. Unfortunately, the patient still had pain with pinching of the skin and subsequently had been converted to a general anesthetic. A typical Pfannenstiel type incision was then made. This was carried down with electrocautery through the fascia. The fascia was elevated using Brady clamps. This was superior and inferior flaps. A Metzenbaum and a pickup were used to transect the peritoneum and the abdomen was inspected without abnormality. A muscle spreading technique was then performed The bladder was identified and deflected from the uterus itself. Using a Jazmine clamp, blunt dissection was performed of the uterine wall allowing entry into the uterus proper. A bandage scissors was used to transect the uterus. The baby was delivered with moderate difficulty, was found to be larger than expected. Therefore, the uterus was enlarged during this process. At no time was the baby had any undue traction, rather counter pressure was used to facilitate delivery of the baby. Also of note, the baby's arms or legs or head were never pulled on any time. Once the baby was delivered, the cord was clamped and subsequently cut. This was transected and the baby was delivered off the field. The placenta was then delivered. The uterus was inspected multiple times to ensure complete placenta delivery. The uterus was then closed with #0 Vicryl running locked times x3 layers. The bladder would be reapproximated using the same suture. The abdomen was then thoroughly irrigated and checked for clots. The muscles were reapproximated using blunt Vicryl suture. The fascia was closed using 0 Vicryl suture in a running nonlocked fashion. All layers were then thoroughly irrigated again. Vicryl was used to reapproximate the tissue. The skin was closed with 4-0 Vicryl and Dermabond was applied. The patient tolerated the procedure well. Sean Sanders MD /[id number]
[2016-08-12] MEDS: Acetaminophen/oxyCODONE 325-5 MG Tab PO PRN ×2 (15:03→21:32)
[2016-08-12] MEDS: Ibuprofen 800 MG Tab PO PRN (22:50)
[2016-08-13] MEDS: Acetaminophen/oxyCODONE 325-5 MG Tab PO PRN ×5 (01:21→22:14)
--- NOTE | 2016-08-13 13:10 | PN ---
DATE OF SERVICE: 08/13/2016 SUBJECTIVE: The patient is greatly improved today and doing well. Pain is well controlled. No nausea, vomiting, shortness of breath, or chest pain. OBJECTIVE: VITAL SIGNS: Stable. CARDIOVASCULAR: Regular rhythm and rate. RESPIRATORY: Lungs clear to consultation bilaterally. SKIN: Incisions healing well. ASSESSMENT: Status post . PLAN: Increase diet and activity. Consider for discharge in a.. Sean Sanders MD /[id number]
[2016-08-13] MEDS: Ibuprofen 800 MG Tab PO PRN (14:22)
[2016-08-14] MEDS: Acetaminophen/oxyCODONE 325-5 MG Tab PO PRN ×3 (03:05→12:01)
[2016-08-14 07:51] VITALS: BP 105/75
--- NOTE | 2016-08-14 12:44 | PN ---
DATE OF SERVICE: 08/14/2016 SUBJECTIVE: The patient is doing very well. Pain is well controlled. No nausea, vomiting, shortness of breath, or chest pain. OBJECTIVE: VITAL SIGNS: Vital signs are stable. CARDIOVASCULAR: Regular rhythm and rate. RESPIRATORY: Lungs clear to consultation bilaterally. Incision healing well. ASSESSMENT: Status post . PLAN: The patient will be discharged today. We discussed diet, activity, signs and symptoms, complications, and the role of the emergency room. They understand and wished to proceed. Sean Sanders MD /[id number]
--- NOTE | 2016-08-14 13:03 | DISCH ---
DISCHARGE DIAGNOSIS: Status post . ADDITIONAL DIAGNOSIS: None. HOSPITAL COURSE: This is a pleasant 26-year-old female, who had inability to complete vaginal delivery thus requiring a . The patient did well with respect to her C section. Fortunately, she require general anesthetic due to pain control, but afterwards did quite well. On the date of her discharge, her pain is well controlled. She had no nausea, vomiting, shortness of breath, or chest pain. She is having bowel movements. She is tolerating diet. As far as pain is concerned, she was prescribed [place]. FOLLOWUP: Follow up with surgery in 7 to 14 days. ACTIVITY: No lifting greater than 30 pounds x30 days.
== END 2016-08-14 12:38 | disposition home or self-care (01) | DRG 766 ==
LOC: JP.OB 07:14 → OBSVTOIN 08-12 07:31 → JP.MS 08-12 12:41
PROVIDERS: ADMIT Advanced Practice Midwife; ATTEND Advanced Practice Midwife
PROC: 10D00Z1 Extraction of Products of Conception, Low, Open Approach (ICD-10-PCS; principal; 2016-08-11)
PROC: 3E0P7GC Introduction of Other Therapeutic Substance into Female Reproductive, Via Natural or Artificial Opening (ICD-10-PCS; 2016-08-11)
PROC: 00HU33Z Insertion of Infusion Device into Spinal Canal, Percutaneous Approach (ICD-10-PCS; 2016-08-11)
PROC: 3E0R3CZ (ICD-10-PCS; 2016-08-11)
DX: O48.0 Post-term pregnancy (principal); Z3A.40 40 weeks gestation of pregnancy; Z37.0 Single live birth
CPT/HCPCS: 36415; 80048; 80305; 81001; 85025; 85027; 88307; 94762; 99211; A9270-GY; J0131; J2270; J2405; J2540; J2590; J2704; J2795; J3010; J3105; J7030; J7040; J7050; J7120

== ENCOUNTER 2018-08-22 18:41 | Emergency (ER) | payer BC, MEDICAID ==
[2018-08-22 19:25] VITALS: BP 114/75
--- NOTE | 2018-08-22 20:01 | EDM.PDOC ---
ED HPI GENERAL MEDICAL PROBLEM - General Chief Complaint: Headache Stated Complaint: HEADACHE Time Seen by Provider: 08/22/18 19:57 Source of Information: Reports: Patient, RN Notes Reviewed History Limitations: Reports: Language Barrier - History of Present Illness INITIAL COMMENTS - FREE TEXT/NARRATIVE: 28-year-old female presents emergency department today with complaint of headache, the trading manager is present via phone services, there is still a language barrier. States she's had a headache for 6 days she has had headaches like this the past which usually resolve with ibuprofen however this one has not improved she does feel nauseated and light bothers her. 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: , Spontaneous Social & Family History - Tobacco Use Smoking Status *Q: Unknown Ever Smoked - Caffeine Use Other Caffeine Use: occassional caffeine use ED ROS GENERAL - Review of Systems Review Of Systems: See Below Constitutional: Denies: Fever, Chills HEENT: Reports: Eye Pain Respiratory: Reports: No Symptoms Cardiovascular: Reports: No Symptoms GI/Abdominal: Reports: Nausea Neurological: Reports: Headache - Physical Exam Exam: See Below Exam Limited By: Language Barrier General Appearance: Alert, WD/WN, No Apparent Distress Eye Exam: Bilateral Eye: EOMI, Normal Fundi, PERRL Throat/Mouth: Normal Inspection, Normal Lips, Normal Gums, Normal Oropharynx, Normal Voice, No Airway Compromise, Other (Dental care he noticed an tooth #31) Head Exam: Atraumatic, Normocephalic Neck: Normal Inspection, Supple, Non-Tender, Full Range of Motion Respiratory/Chest: No Respiratory Distress Course - Vital Signs Last Recorded V/S: Last Vital Signs Temp 96.2 F 08/22/18 19:39 Pulse 73 08/22/18 19:39 Resp 16 08/22/18 19:39 BP 114/75 08/22/18 19:39 Pulse Ox 98 08/22/18 19:39 - Orders/Labs/Meds Meds: Medications Discontinued Medications Generic Name Dose Route Start Last Admin Trade Name Freq PRN Reason Stop Dose Admin Diphenhydramine HCl 25 mg 08/22/18 19:58 08/22/18 20:23 Benadryl IVPUSH 08/22/18 19:59 25 mg ONETIME ONE Administration Lactated Ringer's 1,000 mls @ 999 mls/hr 08/22/18 19:57 08/22/18 20:07 Ringers, Lactated IV 08/22/18 20:57 999 mls/hr BOLUS ONE Administration Ketorolac Tromethamine 30 mg 08/22/18 19:58 08/22/18 20:19 Toradol IVPUSH 08/22/18 19:59 30 mg ONETIME ONE Administration Prochlorperazine Edisylate 5 mg 08/22/18 19:58 08/22/18 20:17 Compazine IVPUSH 08/22/18 19:59 5 mg ONETIME ONE Administration Departure - Departure Time of Disposition: 22:01 Disposition: Home, Self-Care 01 Condition: Fair Clinical Impression: Headache Qualifiers: Headache type: unspecified Headache chronicity pattern: acute headache - Discharge Information Referrals: PCP,None [Primary Care Provider] - Forms: ED Department Discharge Additional Instructions: Continue use Tylenol or Motrin as needed, Please followup with your primary care provider in 3-5 days if not better, please call return to the emergency department with worsening of symptoms. - Assessment/Plan Plan: Assessment Acuity = acute Site and laterality = headache Etiology = suspicious for migraine type Manifestations = none Location of injury = Home Lab values = none Plan She had good relief combination 1 L fluids, 30 mg Toradol, 5 mg Compazine, 25 mg Benadryl, discharge home follow-up with primary care 3-5 days if not better This note was dictated using [employer] recognition software please call with any questions on syntax or grammar.
[2018-08-22] MEDS: Lactated Ringers 1,000 ML IV ONE (20:07)
[2018-08-22] MEDS: Prochlorperazine 10 MG/2 ML SDV IVPUSH ONE (20:17)
[2018-08-22] MEDS: Ketorolac 30 MG/ML SDV IVPUSH ONE (20:19)
[2018-08-22] MEDS: diphenhydrAMINE 50 MG/ML SDV IVPUSH ONE (20:23)
== END 2018-08-22 22:20 | disposition home or self-care (01) ==
LOC: JP.ED 18:41
DX: R51 Headache (principal)
CPT/HCPCS: 96361; 96374; 96375; 99283; J0780; J1200; J1885; J7120